=== PATIENT | female | born 1960 | race Caucasian/White ===

== ENCOUNTER 2023-11-20 15:41 | Outpatient (CLI) | payer OTHER ==
[2023-11-20] MEDS: ALBUTEROL 1 PUFF INH STA (17:52)
== END 2023-11-20 15:42 | disposition home or self-care (01) ==
LOC: RT 15:41
PROVIDERS: ATTEND Family Medicine
DX: R06.00 Dyspnea, unspecified (principal); F17.200 Nicotine dependence, unspecified, uncomplicated; Z87.09 Personal history of other diseases of the respiratory system
CPT/HCPCS: 94060; 94729